=== PATIENT | male | born 1950 | race African-American/Black ===

== ENCOUNTER 2024-03-03 16:20 | Inpatient (IN) | payer MEDICARE, MEDICAID ==
[~2024-03-03] VITALS: Ht 172.7 cm; Wt 53.6 kg
[2024-03-03] MEDS: OCTREOTIDE 1,000 MCG in SODIUM CHLORIDE 0.9% 98 ML IV ONE (17:15)
[2024-03-03] MEDS: SODIUM CHLORIDE 0.9% 1,000 ML IV ONE (17:33)
[2024-03-03] MEDS: PANTOPRAZOLE 80 MG in SODIUM CHLORIDE 0.9% 100 ML IV SCH (20:04)
[2024-03-03 21:25] LABS: BASOPHILS % 0.1 % (0.0-2.0); DIFFERENTIAL COMMENT 0; HEMATOCRIT. 25.3 % (42.0-52.0); HEMOGLOBIN. 8.3 g/dL (14.0-18.0); LYMPHOCYTES % 7.3 % (20.0-50.0); MEAN CORPUSCULAR HGB CONC 32.8 g/dL (31.0-37.0); MEAN CORPUSCULAR VOLUME 109.6 fL (80.0-94.0); MEAN PLATELET VOLUME 7.7 fl (7.4-10.4); MONOCYTES % 5.8 % (2.0-8.0); NEUTROPHILS % 86.8 % (40.0-76.0); PLATELET 333 x1000/uL (130-400); RED BLOOD CELL COUNT 2.31 mill/uL (4.7-6.1); RED CELL DISTRIBUTION WIDTH 14.1 % (11.6-14.6); WHITE BLOOD COUNT 16.7 x1000/uL (4.5-11.0)
[2024-03-03 21:29] LABS: CHLORIDE 111 mEq/L (98-107); SODIUM 144 mEq/L (136-145)
[2024-03-03 21:30] LABS: CARBON DIOXIDE 27 mEq/L (21-32)
[2024-03-03 21:34] LABS: PROTHROMBIN TIME 10.9 sec (9.6-11.0)
[2024-03-03 21:35] LABS: CREATININE 0.9 mg/dL (0.6-1.3); GLUCOSE 92 mg/dL (70-105); UREA NITROGEN BLOOD 28 mg/dL (9-23)
[2024-03-03 21:37] LABS: ALANINE AMINOTRANSFERASE < 7 IU/L (10-49); ALBUMIN 2.6 g/dL (3.2-4.8); ASPARTATE AMINOTRANSFERASE 12 IU/L (<34); BILIRUBIN TOTAL 0.3 mg/dL (0.1-1.0)
[2024-03-03 21:38] LABS: LACTIC ACID 2.3 mmol/L (0.4-2.0); PROTEIN TOTAL 4.7 g/dL (6.0-8.3)
[2024-03-03 22:05] VITALS: BP 121/69; PULSE 97; RESP 16; TEMP 36.89184; TEMP 36.9184; O2SAT 98
[2024-03-04] VITALS: BP 94/52; PULSE 99; RESP 16; TEMP 36.9474; O2SAT 100
[2024-03-04] MEDS: FOLIC ACID 1 MG, THIAMINE HCL 100 MG, MVI, ADULT NO.1 10 ML in DEXTROSE 5% WATER 1,000 ML IV NR (00:28)
[2024-03-04] MEDS ORDERED: DIPHENHYDRAMINE 50MG/ML VIAL IV PRN (02:30)
[2024-03-04] MEDS ORDERED: CLONIDINE 0.1MG TABLET PO PRN (02:30)
[2024-03-04] MEDS ORDERED: ACETAMINOPHEN 325MG TABLET PO PRN ×2 (02:30)
[2024-03-04] MEDS ORDERED: ONDANSETRON HCL 4MG/2ML INJ IV PRN (02:30)
[2024-03-04] MEDS: PANTOPRAZOLE SODIUM 40 MG/VIAL IV SCH (02:46)
[2024-03-04 03:18] LABS: *AMPHETAMINES SCREEN URINE NEGATIVE (NEGATIVE); *BARBITURATES SCREEN URINE NEGATIVE (NEGATIVE); *BENZODIAZEPINES SCREEN URINE NEGATIVE (NEGATIVE); *COCAINE SCREEN URINE NEGATIVE (NEGATIVE); METHADONE URINE SCREEN NEGATIVE (NEGATIVE); OPIATES URINE SCREEN NEGATIVE (NEGATIVE); PHENCYCLIDINE URINE SCREEN NEGATIVE (NEGATIVE)
[2024-03-04 03:19] LABS: CANNABINOID URINE SCREEN NEGATIVE (NEGATIVE); ECSTASY MDMA SCREEN URINE NEGATIVE (NEGATIVE)
[2024-03-04 04:00] VITALS: BP 117/64; PULSE 82; RESP 18; TEMP 36.78072; O2SAT 100
[2024-03-04] MEDS: CHLORDIAZEPOXIDE 25MG CAPSULE PO SCH (06:11)
[2024-03-04 08:00] VITALS: BP 93/52; PULSE 89; RESP 17; TEMP 36.78072; O2SAT 100
[2024-03-04] MEDS: IOHEXOL-300 100 ML BOTTLE ONE (09:19)
[2024-03-04 12:00] VITALS: BP 117/64; PULSE 87; RESP 18; TEMP 36.6696; O2SAT 100
[2024-03-04 12:20] LABS: HEMATOCRIT 23.6 % (42.0-52.0); HEMOGLOBIN 7.5 g/dL (14.0-18.0); MEAN CORPUSCULAR HEMOGLOBIN 35.7 pg (28.0-32.0); MEAN CORPUSCULAR HGB CONC 31.6 g/dL (31.0-37.0); MEAN CORPUSCULAR VOLUME 113.2 fL (80.0-94.0); PLATELET 299 x1000/uL (130-400); RED BLOOD CELL COUNT 2.09 mill/uL (4.7-6.1); RED CELL DISTRIBUTION WIDTH 14.9 % (11.6-14.6); WHITE BLOOD COUNT 9.1 x1000/uL (4.5-11.0)
[2024-03-04] MEDS: SODIUM CHLORIDE 0.9% 1,000 ML IV SCH (12:22)
[2024-03-04 16:00] VITALS: BP 117/66; PULSE 73; RESP 13; TEMP 36.44736; O2SAT 100
[2024-03-04 20:00] VITALS: BP 116/66; PULSE 92; RESP 16; TEMP 36.89184; O2SAT 99
[2024-03-05] VITALS: BP 119/76; PULSE 73; RESP 18; TEMP 36.6696; O2SAT 97
[2024-03-05 04:00] VITALS: BP 132/72; PULSE 67; RESP 16; TEMP 36.61404; O2SAT 97
[2024-03-05 08:00] VITALS: BP 101/58; PULSE 84; RESP 22; TEMP 36.33624; O2SAT 94
[2024-03-05] MEDS: MULTIVITAMINS,THER W-MINERALS TABLET PO SCH (09:01)
[2024-03-05] MEDS: THIAMINE HCL 100MG TABLET PO SCH (09:01)
[2024-03-05] MEDS: FOLIC ACID 1MG TABLET PO SCH (09:02)
[2024-03-05 12:00] VITALS: BP 124/75; PULSE 74; RESP 16; TEMP 36.33624; O2SAT 95
[2024-03-05] MEDS: SUCRALFATE 1G TABLET PO SCH (13:44)
[2024-03-05 16:00] VITALS: BP 113/61; PULSE 80; RESP 18; TEMP 36.44736; O2SAT 96
[2024-03-05 20:00] VITALS: BP 96/61; PULSE 82; RESP 16; TEMP 36.83628; O2SAT 97
[2024-03-05] MEDS: DEXT 5%/0.45% NACL 1000ML 1,000 ML IV SCH (22:51)
[2024-03-06] VITALS (11 sets, daily range): BP systolic 107–138; BP diastolic 57–90; PULSE 63–121; RESP 14–20; TEMP 36.3–36.83628; O2SAT 97–100
[2024-03-06 03:10] LABS: CHLORIDE 111 mEq/L (98-107); POTASSIUM 3.8 mEq/L (3.5-5.1); SODIUM 142 mEq/L (136-145)
[2024-03-06 03:11] LABS: CARBON DIOXIDE 26 mEq/L (21-32)
[2024-03-06 03:16] LABS: CREATININE 0.7 mg/dL (0.6-1.3); GLUCOSE 88 mg/dL (70-105); IRON 23 ug/dL (65-175)
[2024-03-06 03:17] LABS: BASOPHILS % 0.5 % (0.0-2.0); DIFFERENTIAL COMMENT 0; EOSINOPHILS % 1.5 % (0.0-5.0); IRON 23 ug/dL (65-175); MEAN CORPUSCULAR HEMOGLOBIN 37.2 pg (28.0-32.0); MEAN CORPUSCULAR HGB CONC 33.9 g/dL (31.0-37.0); MEAN CORPUSCULAR VOLUME 109.6 fL (80.0-94.0); MEAN PLATELET VOLUME 7.4 fl (7.4-10.4); MONOCYTES % 6.3 % (2.0-8.0); NEUTROPHILS % 79.7 % (40.0-76.0); PLATELET 329 x1000/uL (130-400); RED BLOOD CELL COUNT 1.79 mill/uL (4.7-6.1); RED CELL DISTRIBUTION WIDTH 14.3 % (11.6-14.6); UREA NITROGEN BLOOD 16 mg/dL (9-23); WHITE BLOOD COUNT 8.4 x1000/uL (4.5-11.0)
[2024-03-06 03:19] LABS: PHOSPHORUS 3.9 mg/dL (2.5-4.9); TOTAL IRON BINDING CAPACITY 135 ug/dl (250-425); TOTAL IRON BINDING CAPACITY 136 ug/dl (250-425)
[2024-03-06 03:25] LABS: INR 0.9; PROTHROMBIN TIME 10.2 sec (9.6-11.0)
[2024-03-06 03:32] LABS: FERRITIN 540 ng/mL (22-322); FOLIC ACID (FOLATE) SERUM > 20.00 ng/mL (>5.38); VITAMIN B12 SERUM 617 pg/mL (211-911)
[2024-03-06 03:56] LABS: HEMOGLOBIN. 6.7 g/dL (14.0-18.0)
[2024-03-06 03:57] LABS: HEMATOCRIT. 19.6 % (42.0-52.0)
[2024-03-06] MEDS: MAGNESIUM OXIDE 400MG TABLET PO NR (04:45)
[2024-03-06] MEDS: MAGNESIUM 1G PREMIX 100ML IV NR (04:56)
[2024-03-06] MEDS: MAGNESIUM 4 G PREMIX 100 ML IV NR (07:08)
[2024-03-06 10:22] LABS: HEMATOCRIT 24.8 % (42.0-52.0); HEMOGLOBIN 8.4 g/dL (14.0-18.0)
[2024-03-06] MEDS ORDERED: PROPOFOL 200MG/20ML VIAL IV ONE (12:57)
[2024-03-06] MEDS: ZOLPIDEM TARTRATE 5MG TABLET PO PRN (20:19)
[2024-03-07] VITALS (7 sets, daily range): BP systolic 94–110; BP diastolic 48–72; PULSE 72–94; RESP 16–20; TEMP 36.4–36.6; O2SAT 99–100
[2024-03-07 08:12] LABS: ALPHA FETOPROTEIN TUMOR MARKER 2.2 ng/mL (0.0-8.4); CARCINOEMBRYONIC AG - SEND OUT 4.6 ng/mL (0.0-4.7)
[2024-03-07] MEDS ORDERED: NON FORMULARY MED XX SCH (10:45)
[2024-03-07] MEDS: METOCLOPRAMIDE HCL 10MG/2ML VIAL IV SCH (12:02)
[2024-03-07] MEDS: IRON SUCROSE COMPLEX 100 MG/5 ML ML IV NR (12:02)
[2024-03-08] MEDS ORDERED: FERROUS SULFATE 325MG TABLET PO SCH (09:00)
[2024-03-08] MEDS ORDERED: ASCORBIC ACID 250 MG TABLET PO SCH (09:00)
== END 2024-03-07 17:56 | disposition home or self-care (01) | DRG 377 ==
LOC: ER 16:20 → 3WST 20:16
PROVIDERS: ADMIT Internal Medicine; ATTEND Internal Medicine
PROC: 0DB78ZX Excision of Stomach, Pylorus, Via Natural or Artificial Opening Endoscopic, Diagnostic (ICD-10-PCS; principal; 2024-03-06)
PROC: 30233N1 Transfusion of Nonautologous Red Blood Cells into Peripheral Vein, Percutaneous Approach (ICD-10-PCS; 2024-03-06)
DX: K29.01 Acute gastritis with bleeding (principal); K85.90 Acute pancreatitis without necrosis or infection, unspecified; K31.1 Adult hypertrophic pyloric stenosis; E87.20 Acidosis, unspecified; K86.1 Other chronic pancreatitis; K29.81 Duodenitis with bleeding; D53.9 Nutritional anemia, unspecified; E61.1 Iron deficiency; I10 Essential (primary) hypertension; K21.9 Gastro-esophageal reflux disease without esophagitis; N26.1 Atrophy of kidney (terminal); F41.9 Anxiety disorder, unspecified; F10.20 Alcohol dependence, uncomplicated; F17.210 Nicotine dependence, cigarettes, uncomplicated
CPT/HCPCS: 36415; 74177; 76700; 80048; 80053; 80305; 82105; 82270; 82378; 82607; 82728; 82746; 83540; 83550; 83605; 83735; 84100; 85014; 85018; 85025; 85027; 85044; 86850; 86870; 86900; 86920; 88305; 88312; 88313; 99291; A4606; J2354; J2470; J2704; J2765; J3411; J3475; J3490; J7030; J7050; J7070; P9016; Q9967

== ENCOUNTER 2024-05-28 03:36 | Emergency (ER) | payer MEDICARE, MEDICAID ==
[~2024-05-28] VITALS: Ht 175.3 cm; Wt 66.0 kg
[2024-05-28 03:42] VITALS: O2SAT 97
[2024-05-28] MEDS: KETOROLAC 15MG/ML VIAL IV ONE (05:10)
[2024-05-28 10:15] VITALS: BP 128/72; PULSE 98; RESP 14; TEMP 36.7; O2SAT 99
== END 2024-05-28 10:46 | disposition home or self-care (01) ==
LOC: ER 03:36
DX: M79.671 Pain in right foot (principal); I10 Essential (primary) hypertension; F17.200 Nicotine dependence, unspecified, uncomplicated; W19.XXXA Unspecified fall, initial encounter; Y93.89 Activity, other specified; Y92.89 Other specified places as the place of occurrence of the external cause; Y99.8 Other external cause status
CPT/HCPCS: 99283